=== PATIENT | female | born 1975 | race Caucasian/White ===

== ENCOUNTER 2017-08-20 19:38 | Inpatient (IN) | payer OTHER ==
[~2017-08-20] VITALS: Ht 162.6 cm; Wt 76.6 kg
[2017-08-20 20:07] LABS: HEMOGLOBIN 13.3 G/DL (11.9-15.5); MCH 36.3 PG (29.0-34.0); MCV 103.8 FL (83-99); PLATELET COUNT 104 K/uL (156-360); RBC DIS.WIDTH-CV 13.9 % (11.8-14.6); RBC DIS.WIDTH-SD 53.2 % (39-53); RED BLOOD COUNT 3.66 M/uL (3.80-5.20); WHITE BLOOD COUNT 7.1 K/uL (4.1-10.2)
[2017-08-20 20:15] LABS: CHLORIDE 104 mEq/L (99-109); POTASSIUM 3.1 mEq/L (3.7-5.4); SODIUM 144 mEq/L (136-147)
[2017-08-20 20:17] LABS: GLUCOSE 87 mg/dL (70-99)
[2017-08-20 20:21] LABS: CREATININE 0.7 mg/dL (0.6-1.3); GFR ESTIMATE (CALCULATED) > 59 mL/min/; UREA NITROGEN (BUN) 5 mg/dL (9-23)
[2017-08-20] MEDS ORDERED: TYLENOL SINUS1 EA16 PO (21:05)
[2017-08-20] MEDS ORDERED: METHADONE 22 MG/1 ML PO (21:07)
[2017-08-20 21:59] LABS: SERUM ETHYL ALCOHOL 329 mg/dL
[2017-08-20 22:30] VITALS: BP 119/59
[2017-08-21 03:41] VITALS: BP 107/52
[2017-08-21 05:42] LABS: HEMATOCRIT 33.7 % (36.0-46.0); HEMOGLOBIN 11.2 G/DL (11.9-15.5); MCH 34.9 PG (29.0-34.0); MCHC 33.2 G/DL (30.0-36.0); PLATELET COUNT 87 K/uL (156-360); RBC DIS.WIDTH-CV 14.3 % (11.8-14.6); RBC DIS.WIDTH-SD 55.9 % (39-53); RED BLOOD COUNT 3.21 M/uL (3.80-5.20); WHITE BLOOD COUNT 5.2 K/uL (4.1-10.2)
[2017-08-21 06:02] LABS: ALBUMIN 2.7 G/DL (3.2-4.8); ALKALINE PHOSPHATASE 163 IU/L (3-129); ALT (GPT) 59 IU/L (3-49); AST (GOT) 207 IU/L (2-34); CHLORIDE 106 MEQ/L (99-109); CREATININE 0.4 MG/DL (0.6-1.3); GFR ESTIMATE (CALCULATED) > 59 mL/min/; GLUCOSE 82 mg/dL (70-99); SODIUM 140 MEQ/L (136-147); TOTAL BILIRUBIN 1.1 MG/DL (0.0-1.0); TOTAL PROTEIN 5.8 G/DL (6.4-8.3); UREA NITROGEN (BUN) 5 mg/dL (9-23)
[2017-08-21 07:57] VITALS: BP 112/54
[2017-08-21 11:36] VITALS: BP 107/53
[2017-08-21 15:53] VITALS: BP 145/66
[2017-08-21 19:08] VITALS: BP 140/64
[2017-08-21 23:12] VITALS: BP 131/63
[2017-08-22 07:35] VITALS: BP 129/63
[2017-08-22 08:01] LABS: HEMATOCRIT 35.4 % (36.0-46.0); MCH 35.8 PG (29.0-34.0); MCHC 33.9 G/DL (30.0-36.0); MCV 105.7 FL (83-99); PLATELET COUNT 66 K/uL (156-360); RBC DIS.WIDTH-CV 13.8 % (11.8-14.6); RBC DIS.WIDTH-SD 53.2 % (39-53); RED BLOOD COUNT 3.35 M/uL (3.80-5.20); WHITE BLOOD COUNT 3.7 K/uL (4.1-10.2)
[2017-08-22 08:24] LABS: CHLORIDE 105 MEQ/L (99-109); CREATININE 0.4 MG/DL (0.6-1.3); GFR ESTIMATE (CALCULATED) > 59 mL/min/; GLUCOSE 69 mg/dL (70-99); SODIUM 136 MEQ/L (136-147); UREA NITROGEN (BUN) 4 mg/dL (9-23)
[2017-08-22 08:29] LABS: POTASSIUM 3.8 MEQ/L (3.7-5.4)
[2017-08-22 11:16] VITALS: BP 130/66
[2017-08-22 13:53] LABS: HEPATITIS B SURFACE ANTIGEN Nonreactive
[2017-08-22 13:54] LABS: ANTI-HEPATITIS A VIRUS (IGM) Nonreactive
[2017-08-22 13:55] LABS: ANTI-HEPATITIS B CORE (IGM) Nonreactive; HEPATITIS C ANTIBODY REACTIVE
[2017-08-22 15:30] VITALS: BP 120/58
[2017-08-22 20:33] VITALS: BP 131/60
[2017-08-23 00:06] VITALS: BP 130/60
[2017-08-23 04:09] VITALS: BP 132/61
[2017-08-23 07:24] VITALS: BP 112/53
[2017-08-23 07:34] VITALS: BP 140/62
[2017-08-23 11:13] VITALS: BP 104/55
[2017-08-23] MEDS ORDERED: MOTRIN600 MG PO (12:10)
== END 2017-08-23 12:59 | disposition home or self-care (01) | DRG 86 ==
LOC: TRA 19:38 → EME 19:38 → 3EAST 21:07 → EDOF 21:07 → ENRESERV 21:09 → 3EAST 22:28
PROVIDERS: Nurse Practitioner Family; Student in an Organized Health Care Education/Training Program
DX: S06.6X1A Traumatic subarachnoid hemorrhage with loss of consciousness of 30 minutes or less, initial encounter (principal); S00.83XA Contusion of other part of head, initial encounter; W18.30XA Fall on same level, unspecified, initial encounter; F10.229 Alcohol dependence with intoxication, unspecified; B19.20 Unspecified viral hepatitis C without hepatic coma; F11.20 Opioid dependence, uncomplicated; F17.210 Nicotine dependence, cigarettes, uncomplicated; F41.9 Anxiety disorder, unspecified; Z88.0 Allergy status to penicillin
CPT/HCPCS: 70450; 80048; 80053; 80074; 85027; 99281; 99285; G0480; J7030; J7120

== ENCOUNTER 2017-12-08 18:13 | Emergency (ER) | payer OTHER ==
[~2017-12-08] VITALS: Ht 162.6 cm; Wt 69.6 kg
[~2017-12-08 18:13] MED LIST: METHADONE 22 MG/1 ML PO; MOTRIN600 MG PO; TYLENOL SINUS1 EA16 PO
[2017-12-08 18:17] VITALS: BP 153/81
== END 2017-12-08 18:25 | disposition left against medical advice (07) ==
LOC: EME 18:13
DX: F10.20 Alcohol dependence, uncomplicated (principal); B19.9 Unspecified viral hepatitis without hepatic coma; Z53.21 Procedure and treatment not carried out due to patient leaving prior to being seen by health care provider